=== PATIENT | female | born 1995 | race African-American/Black ===

== ENCOUNTER 2021-07-31 15:09 | Outpatient (CLI) | payer OTHER, SELFPAY ==
--- NOTE | ~2021-07-31 | US_ITS ---
EXAMINATION: US OB <= 14 weeks fetus EXAM DATE: 07/31/2021 15:42 INDICATION: O36.80X0 - with inconclusive viability, n... Dating . 1st trimester. TECHNIQUE: Pelvic obstetrical transabdominal sonogram was performed by a technologist. There are mu ltiple grayscale and Doppler images available for interpretation. There are no earlier studies of th is gestation for comparison. FINDINGS: Uterus measures 11.1 x 6.7 x 6.0 cm. There is intrauterine gestation sac. pole with heart rate confirmed at 161 beats per minute. The 1.6 cm crown-rump length corresponds to estimated gestational age by ultrasound of 8 weeks 0 days, estimated date of confinement 03/12. Yolk sac is id entified. There is no sonographic evidence of subchorionic hemorrhage. Right ovary is identified and morphologically normal. IMPRESSION: Live intrauterine gestation, age by ultrasound 8 weeks 0 days. Reviewed, dictated and finalized at location A. [employer]
== END 2021-07-31 15:10 | disposition home or self-care (01) ==
LOC: ANHIMG 15:14
PROVIDERS: Visit Provider Student in an Organized Health Care Education/Training Program
DX: Z34.91 Encounter for supervision of normal pregnancy, unspecified, first trimester (principal); Z3A.01 Less than 8 weeks gestation of pregnancy
CPT/HCPCS: 76801

== ENCOUNTER 2022-02-15 09:37 | Observation (INO) | payer OTHER, SELFPAY ==
[2022-02-15] VITALS (8 sets, daily range): BP systolic 90–117; BP diastolic 50–77; PULSE 78–86; TEMP 36.3; BMI 27.4
--- NOTE | ~2022-02-15 | US_ITS ---
EXAMINATION: US OB follow up DATE: 02/15/2022 12:19 INDICATION: Assess growth, amniotic fluid index and check placenta and third trimester pregnanc y following a fall earlier this morning. TECHNIQUE: Real-time ultrasound of the pelvis was performed. The interpreting radiologist was not pre sent for the study. COMPARISON: None. FINDINGS: There is a single living fetus in vertex presentation. The placenta is anterior. heart rate is 141 beats per minute (bpm). The amniotic fluid index is 12.0 cm, which is normal. (5th%-95%: 7.7-44 .9 cm at 36 weeks estimated gestational age). The following biometric data were obtained: BPD: 9.1 cm -> 36 weeks 5 days Head circumference: 33.3 cm -> 38 weeks 0 days Abdominal circumference: 30.6 cm -> 34 weeks 4 days Femur length: 6.8 cm -> 34 weeks 6 days Mildly discordant head circumference to abdominal circumference ratio: 1.09 (normal range 0.93-1.08). Estimated weight: 2625 g (+/-) 394 g or 5 lbs. 13 oz. (+/-) 14 oz. IMPRESSION: 1. Single living fetus in vertex presentation with heart rate of 141 bpm. 2. Normal amniotic fluid index of 12.0 cm. 3. Estimated weight is 22nd percentile by Hadlock criteria when 03/12/2022 is used as the estima diane date of delivery (KAPIL). Please correlate with clinical information or earlier ultrasounds for mos t accurate KAPIL. Reviewed, dictated and finalized at location A. IMPRESSION: 1. Single living fetus in vertex presentation with heart rate of 141 bpm. 2. Normal amniotic fluid index of 12.0 cm. 3. Estimated weight is 22nd percentile by Hadlock criteria when 03/12/2022 is used as the estimated date of delivery (KAPIL). Please correlate with clinica l information or earlier ultrasounds for most accurate KAPIL.
[2022-02-15 10:12] LABS: Basophils Percent Auto 0.3 % (0.2-1.2); Eosinophils Percent Auto 0.4 % (0-4.4); Hematocrit 33.7 % (37.0-47.0); Hemoglobin 10.5 g/dL (12.0-15.0); Immature Granulocyte Absolute 0.09 K/mm3 (0.00-0.031); Lymphocytes Percent Auto 20.6 % (18.3-44.2); Mean Corpuscular HGB Conc 31.2 g/dl (32-36); Mean Corpuscular Hemoglobin 26.1 pg (26-34); Mean Corpuscular Volume 83.8 fl (80-100); Mean Platelet Volume 9.9 fl (7.4-10.4); Monocytes Absolute Auto 0.5 K/mm3 (0.1-0.6); Monocytes Percent Auto 5.4 % (2.6-8.5); Neutrophils Absolute Auto 6.7 K/mm3 (1.3-6.7); Neutrophils Percent Auto 72.3 % (45.5-73.1); Platelet Count Result 219 k/mm3 (150-375); Red Blood Count 4.02 M/mm3 (4.2-5.4); Red Cell Distribution Width 13.7 % (11.5-14.5); White Blood Count 9.2 K/mm3 (4.5-10.0)
--- NOTE | 2022-02-15 10:20 | OBADM ---
This patient, Garret Valiente, admitted to the OB room 116 for observation. Patient/family oriented to hospital policies and general routines including ID bracelet, bed and alarms, visiting hours, pain management, procedures, bathroom and other care routines, personal items, smoking policy, room service/diet, and visiting hours. Patient/Family are encouraged to report perceived risks to care and to ask questions if they do not understand what they are told or what they should do.
[2022-02-15 10:29] LABS: Fibrinogen 360 mg/dl (215-510); INR 1.1; Prothrombin Time 14.1 Seconds (11.1-14.7)
[2022-02-15 10:30] LABS: Partial Thromboplastin Time 27.4 SECONDS (22.3-36.8)
--- NOTE | 2022-02-15 12:03 | PM.IMHP ---
H&P: HPI History of Present Illness Date/Time: 02/15/22 12:03 Chief Complaint: status post fall Narrative: she fell down six stairs on her bottom this morning. No spotting. No bleeding. No leaking of fluid. She started having a pain on her right near hip area. Baby has been moving well. No contraction type pain. Review of Systems Review of Systems: All systems reviewed & are unremarkable except as noted in HPI and below Constitutional: Constitutional: Reports no additional constitutional complaints and Denies headache(s) Eyes: Eyes: Denies spots in vision ENT: Reports system reviewed and no additional complaints, except as documented and Denies headache(s) Cardiovascular: Cardiovascular: Denies chest pain and Denies dyspnea Respiratory: Respiratory: Denies dyspnea Gastrointestinal: Gastrointestinal: Reports no additional gastrointestinal complaints Genitourinary: Genitourinary: Reports amenorrhea Musculoskeletal: Musculoskeletal: Reports no additional musculoskeletal complaints Integumentary/Breasts: Skin/Breast: Denies breast mass and Denies rash Neurologic: Denies headache(s) Psychiatric: Psychiatric: Reports no additional psychiatric complaints [facility] Past Medical History Medical History Vaginal delivery Family History Family History Grandparent Family history of malignant neoplasm of breast in first degree relative Mother Lupus Social History Social History Smoking status: Never smoker Second hand tobacco smoke exposure: No Alcohol intake: former Substance use: former Substance use type: marijuana Other substance usage details: Used Marijuana in the past- denies during Spiritual care concerns: No Meds Home Medications and Allergies Home Medications Medication Instructions Recorded Confirmed Type docosahexaenoic acid 200 mg 200 mg PO DAILY 07/23/21 02/16/22 History capsule ( DHA) ferrous sulfate 325 mg (65 mg 325 mg PO DAILY 02/15/22 02/15/22 History iron) tablet Allergies Allergy/AdvReac Type Severity Reaction Status Date / Time No Known Allergies Allergy Verified 02/10/22 12:33 Vital Signs Vital Signs - 24 hr 02/15/22 10:18 02/15/22 10:21 02/15/22 10:31 Temperature 97.3 F L Pulse Rate 83 85 Blood Pressure 115/62 90/51 L Oxygen Delivery Room Air 02/15/22 10:46 02/15/22 11:01 02/15/22 11:16 Temperature Pulse Rate 78 83 Blood Pressure 117/71 114/64 115/77 Oxygen Delivery 02/15/22 11:31 02/15/22 10:32 Temperature Pulse Rate 84 85 Blood Pressure 99/50 L 90/51 L Oxygen Delivery Exam Const: General: no acute distress Eyes: General: appearance normal, both eyes and all related structures Neck: Neck: normal visual inspection Resp: Effort & Inspection: normal respiratory effort GI: Inspection: normal to inspection and other (gravid no bruising no guarding , no fundal tenderness) Other: Gravid no fundal tenderness no right upper quadrant pain : External Female Exam: normal external appearance Other: cervix closed thick Skin: General skin exam: no rashes or lesions noted Neuro: Cognition (Neuro): normal cognition Extrem: General: normal to inspection Psych: Mental Status: mental status grossly normal H&P: Results Labs Labs: Short CBC 02/15/22 Range/Units 09:54 WBC 9.2 (4.5-10.0) K/mm3 Hgb 10.5 L (12.0-15.0) g/dL Hct 33.7 L (37.0-47.0) % Plt Count 219 (150-375) k/mm3 Assessment and Plan Assessment and plan (1) Status post fall: Code(s): Z91.81 - History of falling Status: Acute Assessment and Plan: She was admitted for observation. [place] showed occasional irritability. Cervix closed. Abruption labs ordered. Ultrasound ordered. heart tracing no
== END 2022-02-15 13:29 | disposition home or self-care (01) ==
PROVIDERS: Admitting Provider Obstetrics & Gynecology; Visit Provider Obstetrics & Gynecology
DX: Z04.3 Encounter for examination and observation following other accident (principal); O99.891 Other specified diseases and conditions complicating pregnancy; M25.551 Pain in right hip; W10.9XXA Fall (on) (from) unspecified stairs and steps, initial encounter; Z3A.36 36 weeks gestation of pregnancy
CPT/HCPCS: 36415; 76816; 85025; 85384; 85460; 85610; 85730; G0378; G0379

== ENCOUNTER 2022-03-02 21:15 | Observation (INO) | payer OTHER, SELFPAY ==
[2022-03-02 23:24] VITALS: TEMP 36.6
--- NOTE | 2022-03-02 23:32 | PC.NURSE ---
Called Dr. Billings on pt status, contractions, and unchanged SVE. Orders received to D/C pt with instructions to keep induction and when to return to unit.
[2022-03-03 00:01] VITALS: BMI 28.1
--- NOTE | 2022-03-03 00:36 | OBADM ---
This patient, Garret Valiente, admitted to the OB room Labor/Delivery/Recovery 107 for observation. Patient/family oriented to hospital policies and general routines including ID bracelet, bed and alarms, visiting hours, pain management, procedures, bathroom and other care routines, personal items, smoking policy, room service/diet, and visiting hours. Patient/Family are encouraged to report perceived risks to care and to ask questions if they do not understand what they are told or what they should do.
--- NOTE | 2022-03-31 09:55 | PM.OBTRLD ---
OB - Triage/Final Diagnosis Visit Information Comments/Additional reasons for admission: I have assessed the risk for this patient, Garret Valiente, and determined that she would benefit from observation care. Final Diagnosis (1) False labor: Code(s): O47.9 - False labor, unspecified Status: Acute
== END 2022-03-03 00:07 | disposition home or self-care (01) ==
PROVIDERS: Admitting Provider Obstetrics & Gynecology; Visit Provider Obstetrics & Gynecology
DX: O47.1 False labor at or after 37 completed weeks of gestation (principal); Z3A.38 38 weeks gestation of pregnancy
CPT/HCPCS: G0378; G0379

== ENCOUNTER 2022-03-05 16:47 | Inpatient (IN) | payer OTHER, SELFPAY ==
[2022-03-05] VITALS (8 sets, daily range): BP systolic 105–122; BP diastolic 52–75; PULSE 83–95; TEMP 36.6; BMI 28.0
[2022-03-05 17:49] LABS: Basophils Percent Auto 0.2 % (0.2-1.2); Eosinophils Percent Auto 0.5 % (0-4.4); Hematocrit 34.5 % (37.0-47.0); Immature Granulocyte Absolute 0.08 K/mm3 (0.00-0.031); Immature Granulocyte Percent A 0.9 % (0-0.5); Lymphocytes Absolute Auto 1.82 K/mm3 (0.9-3.2); Lymphocytes Percent Auto 21.1 % (18.3-44.2); Mean Corpuscular HGB Conc 31.9 g/dl (32-36); Mean Corpuscular Hemoglobin 26.4 pg (26-34); Mean Corpuscular Volume 82.9 fl (80-100); Mean Platelet Volume 10.4 fl (7.4-10.4); Monocytes Absolute Auto 0.5 K/mm3 (0.1-0.6); Monocytes Percent Auto 5.8 % (2.6-8.5); Neutrophils Absolute Auto 6.2 K/mm3 (1.3-6.7); Neutrophils Percent Auto 71.5 % (45.5-73.1); Platelet Count Result 226 k/mm3 (150-375); Red Blood Count 4.16 M/mm3 (4.2-5.4); Red Cell Distribution Width 14.3 % (11.5-14.5); White Blood Count 8.6 K/mm3 (4.5-10.0)
[2022-03-05] MEDS: DINOPROSTONE 10 MG VAG INSERT VAGINAL (17:50)
--- NOTE | 2022-03-05 17:52 | LDADM ---
This patient, Garret Valiente, was admitted to Labor/Delivery/Recovery 108 on 03/05/22 at 16:47. Plans for labor, pain management and were discussed with patient. Patient/family oriented to hospital policies and general routines including ID bracelet, bed and alarms, visiting hours, pain management, procedures, bathroom and other care routines, personal items, smoking policy, room service/diet and guest tray routines, security routines, and visiting hours. Patient/Family are encouraged to report perceived risks to care and to ask questions if they do not understand what they are told or what they should do. See OBIX for further documentation.
--- NOTE | 2022-03-05 17:58 | WPDANESEPP ---
Anes - Eval Pre Procedure Procedure: Labor epidural Date/Time: 03/05/22 17:58 Surgeon: haylie Preop Diagnosis: abd pain with contractions Pre Op Diagnosis: iol Patient Data Age: 26 Gender: F Height: Weight: Last Vital Signs Pulse 87 03/05/22 17:50 BP 122/75 03/05/22 17:50 Allergies Allergy/AdvReac Type Severity Reaction Status Date / Time No Known Allergies Allergy Verified 03/03/22 01:06 Home Medications Medication Instructions Recorded Confirmed Type docosahexaenoic acid 200 mg 200 mg PO DAILY 07/23/21 03/03/22 History capsule ( DHA) ferrous sulfate 325 mg (65 mg 325 mg PO DAILY 02/15/22 02/15/22 History iron) tablet Laboratory Tests 03/05/22 03/05/22 17:42 17:42 WBC 8.6 K/mm3 K/mm3 (4.5-10.0) RBC 4.16 M/mm3 L M/mm3 (4.2-5.4) Hgb 11.0 g/dL L g/dL (12.0-15.0) Hct 34.5 % L % (37.0-47.0) MCV 82.9 fl fl (80-100) MCH 26.4 pg pg (26-34) MCHC 31.9 g/dl L g/dl (32-36) RDW 14.3 % % (11.5-14.5) Plt Count 226 k/mm3 k/mm3 (150-375) MPV 10.4 fl fl (7.4-10.4) Immature Gran % (Auto) 0.9 % H % (0-0.5) Neut % (Auto) 71.5 % % (45.5-73.1) Lymph % (Auto) 21.1 % % (18.3-44.2) [place] % (Auto) 5.8 % % (2.6-8.5) Eos % (Auto) 0.5 % % (0-4.4) Baso % (Auto) 0.2 % % (0.2-1.2) Lymph # (Auto) 1.82 K/mm3 K/mm3 (0.9-3.2) [place] # (Auto) 0.5 K/mm3 K/mm3 (0.1-0.6) Eos # (Auto) 0.0 K/mm3 K/mm3 (0-0.3) Baso # (Auto) 0.0 K/mm3 K/mm3 (0.0-0.1) Abs Immat Gran (auto) 0.08 K/mm3 H K/mm3 (0.00-0.031) Absolute Neuts (auto) 6.2 K/mm3 K/mm3 (1.3-6.7) Absolute Nucleated RBC 0.0 K/mm3 K/mm3 (0.0-0.012) Nucleated RBC % 0.0 % % (0.0-0.2) RPR Pending Patient hx anesthesia problems: none Family hx anesthesia problems: none Results Review: All pre-operative results and documents have been reviewed as part of the pre-operative evaluation. [facility] Past Medical History Medical History (Updated 03/05/22 @ 18:01 by Babar Tolbert CRNA) Marijuana use during Obesity and not yet delivered Vaginal delivery Family History Family History Grandparent Family history of malignant neoplasm of breast in first degree relative Mother Lupus Social History Social History Smoking status: Never smoker Second hand tobacco smoke exposure: No Alcohol intake: former Substance use: former Substance use type: marijuana Other substance usage details: Used Marijuana in the past- denies during Spiritual care concerns: No Exam Day of Procedure 03/05/22 17:58 Patient weight: obese Heart: regular rate and rhythm Lungs: clear to auscultation Airway: Mallampati scale class II
[2022-03-05] MEDS: LACTATED RINGERS 1,000 ML 125 ML IV CONT (20:39)
[2022-03-05] MEDS: AMPICILLIN 2 GM/NS 100 ML 2 GM/100 ML BAG IVPB (20:39)
[2022-03-06] VITALS (121 sets, daily range): BP systolic 91–140; BP diastolic 49–104; PULSE 75–114; RESP 16–18; TEMP 36.1–37.1; O2SAT 95–100
[2022-03-06] MEDS: AMPICILLIN 1 GM/NS 50 ML 1 GM/50 ML BAG IVPB ×3 (00:35→09:02)
[2022-03-06] MEDS: FAMOTIDINE 20 MG TABLET PO (02:00)
[2022-03-06] MEDS: fentaNYL CITRATE INJ (*CRX) 100 MCG/2 ML VIAL 50 MCG IV PUSH (02:56)
[2022-03-06] MEDS: LACTATED RINGERS 1,000 ML 125 ML IV CONT ×2 (05:46→07:01)
[2022-03-06 07:36] LABS: Rapid Plasma Reagin Non-Reactive (NonReactive)
--- NOTE | 2022-03-06 08:35 | PM.IMHP ---
H&P: HPI History of Present Illness Date/Time: 03/06/22 08:35 Chief Complaint: Elective induction of labor Narrative: Patient is a 26-year-old LMP 05/04/2021 currently 39 weeks 1 day gestation with KAPIL 03/12/2022. Patient is dated by ultrasound on 07/31/2021 at 8 weeks gestation. Patient presented to Labor and delivery on the evening of 03/05/2022 for a scheduled elective induction of labor at term. In general, patient is doing well. Reports occasional contractions. Denies any vaginal bleeding or leakage of fluid. Reports good movement. Review of Systems Review of Systems: All systems reviewed & are unremarkable except as noted in HPI and below Constitutional: Constitutional: Reports as per HPI and Reports no additional constitutional complaints Eyes: Eyes: Reports as per HPI and Reports no additional eye complaints ENT: Reports system reviewed and no additional complaints, except as documented and Reports as per HPI Cardiovascular: Cardiovascular: Reports as per HPI and Reports no additional cardiovascular complaints Respiratory: Respiratory: Reports as per HPI and Reports no additional respiratory complaints Gastrointestinal: Gastrointestinal: Reports as per HPI and Reports no additional gastrointestinal complaints Genitourinary: Genitourinary: Reports no additional female genitourinary complaints and Reports as per HPI Musculoskeletal: Musculoskeletal: Reports no additional musculoskeletal complaints and Reports as per HPI Integumentary/Breasts: Skin/Breast: Reports system reviewed and no additional complaints, except as docu and Reports as per HPI Neurologic: Reports system reviewed and no additional complaints, except as documented and Reports as per HPI Psychiatric: Psychiatric: Reports no additional psychiatric complaints and Reports as per HPI Endocrine: Endocrine: Reports no additional endocrine complaints and Reports as per HPI Hematologic/Lymphatic: Hematologic/Lymphatic: Reports no additional hematologic/lymphatic complaints and Reports as per HPI Allergic/Immunologic: Allergic/Immunologic: Reports no additional allergic/immunologic complaints and Reports as per HPI PMF Past Medical History Medical History Marijuana use during Obesity and not yet delivered Vaginal delivery Family History Family History Grandparent Family history of malignant neoplasm of breast in first degree relative Mother Lupus Social History Social History Smoking status: Never smoker Second hand tobacco smoke exposure: No Alcohol intake: former Substance use: former Substance use type: marijuana Other substance usage details: Used Marijuana in the past- denies during Spiritual care concerns: No Meds Home Medications and Allergies Home Medications Medication Instructions Recorded Confirmed Type docosahexaenoic acid 200 mg 200 mg PO DAILY 07/23/21 03/03/22 History capsule ( DHA) ferrous sulfate 325 mg (65 mg 325 mg PO DAILY 02/15/22 02/15/22 History iron) tablet Allergies Allergy/AdvReac Type Severity Reaction Status Date / Time No Known Allergies Allergy Verified 03/03/22 01:06 Vital Signs Vital Signs - 24 hr 03/05/22 17:15 03/05/22 17:44 03/05/22 18:00 Temperature Pulse Rate 95 87 83 Respiratory Rate Blood Pressure 122/70 122/75 113/63 Pulse Oximetry Oxygen Delivery 03/05/22 18:30 03/05/22 19:00 03/05/22 23:11 Temperature Pulse Rate 88 88 85 Respiratory Rate Blood Pressure 114/61 105/52 L 113/58 L Pulse Oximetry Oxygen Delivery 03/06/22 03:21 03/06/22 05:45 03/06/22 05:46 Temperature 36.7 C Pulse Rate 92 91 Respiratory Rate 16 Blood Pressure 115/49 L 127/72 122/66 Pulse Oximetry Oxygen Delivery 03/06/22
--- NOTE | 2022-03-06 08:49 | WPDHPUPDATE1 ---
History and Physical Update Update Date/Time: 03/06/22 08:49 History and Physical has been reviewed, including an updated exam of the patient. There are NO changes in the patient's condition. Risks, benefits, and alternatives have been discussed and questions answered. Patient agrees to proceed with procedure.
[2022-03-06] MEDS: OXYTOCIN 30 UNITS/NS 500 ML 30 UNITS/500 ML BAG 999 UNITS IV CONT (10:20)
--- NOTE | 2022-03-06 10:47 | PM.OBPRVD ---
OB - Delivery Note Procedure Delivery date: 03/06/22 Procedure: Patient is a 26-year-old now who presented to labor and delivery on the evening of 03/05/2022 at 39 weeks gestation for scheduled elective induction of labor. Patient was admitted to labor and delivery. Induction of labor was started with Cervidil. Patient had positive GBS screen during and antibiotics were started for GBS prophylaxis. Cervidil remained in place for 12 hours. Upon removal, patient was noted to be 2-3 cm dilated and yair frequently on her own. She continued to progress on her own. Artificial rupture membranes was performed a 8:28 a.m. Clear amniotic fluid was noted. Patient continued to make progressive cervical change. She was noted to be fully dilated at 10:05 a.m. Patient was encouraged to push and found to be pushing well. She was prepped and draped for delivery. At 10:17 a.m., patient delivered head atraumatically and without difficulty in JOSIAH presentation. Occiput restituted to maternal left side. With subsequent push, the infant's neck, shoulders, and rest of body delivered without difficulty. was crying spontaneously. Nose and mouth were suctioned with bulb suction and was placed on maternal abdomen where care was assumed by awaiting nursing staff. Terminal meconium was noted and infant also voided spontaneously. Delayed cord clamping was performed for approximately 60 seconds. Cord was clamped and cut. A segment of cord was collected for cord gases. Cord blood was collected. The placenta was delivered spontaneous and intact. Uterine fundus was noted to be firm with massage. On inspection, no lacerations were noted. Estimated blood loss for entire delivery was 200 cc. Infant was live born female infant, Apgars 9 and 9, weighing 6 lbs. 11 oz. Both mother and baby doing well at end of delivery. Events: Elective Induction of Labor and Positive Group B Strep (GBS) Induction method: Per Cervidil Protocol Delivery augmentation: Rupture of Membranes Delivery monitor: External FHT and External Uterine Route of delivery: Laceration Description: None Specimen: Yes (cord blood and cord gases) Quantitative Blood Loss (ml): 200 Anesthesia type: Epidural Disposition: Floor Complications: No immediate complications Baby Date of : 03/06/22 Time of : 10:17 Weeks of gestation at delivery: 39 (39.1) gender: Female Weight (pounds): 6 Weight (ounces): 11 presentation: vertex position: Left Occiput Anterior Placenta delivery description: Spontaneous Cord Vessel Description: 3 Vessels and Delayed Cord Clamping score one minute: 9 score five minutes: 9 AMG Delivery Billing Delivery Delivery: Delivery Charge
[2022-03-06] MEDS: OXYTOCIN 30 UNITS/NS 500 ML 30 UNITS/500 ML BAG 125 UNITS IV CONT (10:52)
[2022-03-06] MEDS: WITCH HAZEL 40 PADS 1 PAD TOPICAL (12:29)
--- NOTE | 2022-03-06 12:48 | PC.NURSE ---
Patient transferred to post room #286 via wheel chair. Support person present. Oriented to unit, room, information board, rooming in, admission packet and security measures. Patient verbalizes understanding.
[2022-03-07 00:30] VITALS: BP 108/66; PULSE 86; RESP 16; TEMP 36.9; O2SAT 97
[2022-03-07 04:45] VITALS: BP 110/65; PULSE 80; RESP 16; TEMP 36.5; O2SAT 96
[2022-03-07] MEDS: TETANUS,DIPHTHERIA,AC PERTUSSIS ADULT (0.5 ML) BOOSTRIX IM (04:45)
[2022-03-07 06:08] LABS: Hematocrit 32.9 % (37.0-47.0); Hemoglobin 10.6 g/dL (12.0-15.0)
[2022-03-07 07:15] VITALS: BP 114/67; PULSE 76; RESP 16; TEMP 36.5; O2SAT 98
--- NOTE | 2022-03-07 07:36 | WPDANLDPN2 ---
Anes-Prog Note L&D Date/Time: 03/07/22 07:36 Comfortable throughout: labor and delivery Neuraxial method: epidural Epidural/Spinal procedure site: clean & non-tender Neuro status: Neuro function grossly intact. Vital Signs: Last Vital Signs Temp 36.5 C 03/07/22 04:45 Pulse 80 03/07/22 04:45 Resp 16 03/07/22 04:45 BP 110/65 03/07/22 04:45 Pulse Ox 96 03/07/22 04:45 O2 Del Method Room Air 03/06/22 21:05 Pain score (VAS): 1 I/O: Intake & Output 03/06/22 03/06/22 03/07/22 15:59 23:59 07:59 Intake Total 1550 480 Output Total 325 Balance 1225 480 Patient feedback: Patient satisfied with anesthetic care.
[2022-03-07 08:00] VITALS: PULSE 76; RESP 16; O2SAT 98
[2022-03-07] MEDS: MULTIVIT/MIN/PREN/FOL AC/IRON TABLET 1 TAB PO (09:15)
--- NOTE | 2022-03-07 09:43 | PM.OBPNVD ---
OB - PN: Subj Subjective Date/time seen: 03/07/22 09:43 Patient doing well. Reports minimal to moderate lochia. Denies significant abdominal pain and cramping. Well controlled with medication. Ambulating without difficulty. Voiding well. OB - PN: Obj Data Labs CBC & Chem 7: 03/07/22 05:01 Labs: Laboratory Results - last 24 hr 03/07/22 05:01 Hgb 10.6 L Hct 32.9 L OB - PN A/P Assessment and Plan (1) Normal spontaneous vaginal delivery: Code(s): O80 - Encounter for full-term uncomplicated delivery Status: Acute Assessment and Plan: PPD#1 doing well continue routine care pt requesting dc home today if infant cleared emergency precautions reviewed f/u in 4-6 weeks for visit Time Spent With Patient Time: Total time spent is greater than 50% in coordination of care (as documented) at patient's floor/unit and/or counseling patient: Review of Systems Review of Systems: All systems reviewed & are unremarkable except as noted in HPI and below Constitutional: Constitutional: Reports as per HPI and Reports no additional constitutional complaints Gastrointestinal: Gastrointestinal: Reports as per HPI and Reports no additional gastrointestinal complaints Genitourinary: Genitourinary: Reports no additional female genitourinary complaints and Reports as per HPI Exam Const: General: cooperative, healthy appearing, comfortable and no acute distress GI: Inspection: non-distended GI Palp: Yes Soft to palpation and No Tenderness to palpation present (GI) Other: fundus firm below umbilicus Extrem: Right lower extremity: no edema Left lower extremity: no edema Other: no calf tenderness
--- NOTE | 2022-03-07 09:52 | PC.NURSE ---
Patient viewed the discharge video Mother & Baby Care, The First Two Weeks . Patient was given the opportunity and encouraged to ask questions. Patient verbalized understanding of information shared and has been given the mother/baby guide for home reference.
--- NOTE | 2022-03-07 12:21 | P.DS_ITS ---
DS: Admitting Diagnosis Discharge Date 03/07/22 Admitting Diagnosis IUP at 39w Elective IOL OB - DS: Summary OB Procedures : None OB Procedures Intrapartum: Spontaneous Vag Delivery OB Procedures: : None Time Spent with Patient Time attestation: Total time spent providing and/or coordinating discharge services: DS: Data Data Completed and Pending Labs on day of discharge: Labs from last 24 hours 03/07/22 05:01 Hgb 10.6 L Hct 32.9 L Discharge Plan Discharge Attending physician on discharge: Tayla Cancino Discharging Clinician: Tayla Cancino Anticipated Discharge Date/Time: 03/07/22 12:24 Patient Disposition: Home, Self-Care Activity: as tolerated and pelvic rest Diet: regular Discharge Instructions: Call office ([phone]) to schedule a visit in 4-6 weeks. You may take Ibuprofen 600mg every 6 hours as needed for pain. Pain medication may make you constipated. It may be helpful to take an [id number] stool softener, such as Colace and/or Senokot, along with the pain medication to help lessen constipation. Call office or go to ED for pain not controlled with medication, headache, chest pain, shortness of breath, fever, chills, persistent nausea or vomiting, severe abdominal pain, heavy vaginal bleeding >2 pads/hour, foul vaginal discharge or odor, or problems with your breasts. Patient Instructions: Antibiotic Form Stand Alone Forms: General Discharge Information Follow-up/Referrals: Tayla Cancino MD [Physician] - Discharge Medications: Continued DHA 200 mg capsule 200 mg PO DAILY Discontinued ferrous sulfate 325 mg (65 mg iron) tablet 325 mg PO DAILY Rx Instructions: TAKE 1 TABLET BY MOUTH EVERY DAY Date of admission: 03/05/22 16:47 Primary Care Provider: PHYSICIAN,[employer] Admitting Provider: Tayla Cancino Attending physician on admission: Tayla Cancino Condition: Stable
[2022-03-08 10:18] VITALS: BP 118/72; PULSE 92; RESP 18; TEMP 37.1; O2SAT 97
== END 2022-03-07 13:40 | disposition home or self-care (01) | DRG 560 ==
LOC: ANHLDR 03-06 09:54 → ANHOB2 03-06 13:03
PROVIDERS: Admitting Provider Student in an Organized Health Care Education/Training Program; Visit Provider Student in an Organized Health Care Education/Training Program
DX: O99.824 Streptococcus B carrier state complicating childbirth (principal); Z3A.39 39 weeks gestation of pregnancy; Z37.0 Single live birth
CPT/HCPCS: 36415; 85014; 85018; 85025; 86592; 86850; 86900; 86901; 90715; A9270; J0290; J2590; J2795; J3010; J7120

== ENCOUNTER 2022-04-29 09:25 | Emergency (ER) | payer OTHER, SELFPAY ==
[2022-04-29] VITALS (10 sets, daily range): BP systolic 101–120; BP diastolic 71–80; PULSE 121; RESP 18; TEMP 36.8; O2SAT 90–100
--- NOTE | ~2022-04-29 | US_ITS ---
EXAMINATION: US pelvic complete w TV DATE: 04/29/2022 12:47 INDICATION: Cystic mass in left adnexa. TECHNIQUE: Multiple transabdominal and transvaginal sonographic images of the pelvis were obtained. COMPARISON: CT abdomen and pelvis 04/29/2022 FINDINGS: TRANSABDOMINAL ULTRASOUND: The uterus measures 9.2 x 5.5 x 4.4 cm. There is physiologic free fluid in the pelvis. TRANSVAGINAL ULTRASOUND: The endometrial complex measures 9 mm in thickness. The right ovary measures 4.1 x 2.3 x 2.2 cm. The left ovary measures 4.5 x 2.4 x 2.7 cm. There is normal vascular flow in the ovaries. IMPRESSION: 1. Normal pelvis. Reviewed, dictated and finalized at location A. IMPRESSION: 1. Normal pelvis.
--- NOTE | ~2022-04-29 | CT_ITS ---
EXAMINATION: CT abdomen pelvis w con INDICATION: Left-sided pelvic and abdominal pain TECHNIQUE: Computed tomographic images of the abdomen and pelvis were obtained after the administrati on of 100 cc of Omnipaque 350 intravenous contrast. The dose-length product (DLP) was 271.07 mGy-cm. Automated exposure control and iterative reconstruction technique were employed. COMPARISON: None available FINDINGS: The lung bases are clear. The heart size is normal. The liver, spleen, pancreas, gallbladde r, and adrenal glands are normal. The kidneys are unremarkable. No pathologically enlarged abdominal or pelvic lymph nodes are identified. There is no free intraperitoneal gas or evidence of bowel obstr uction. There is a 3.6 x 3.4 cm fluid collection in the left pelvis. A small amount of fluid is prese nt in the endometrial canal. The appendix is normal. IMPRESSION: 1. 3.6 cm fluid collection of the left pelvis which could relate to the left ovary however, further e valuation with pelvic ultrasound is recommended. Reviewed, dictated and finalized at location A. IMPRESSION: 1. 3.6 cm fluid collection of the left pelvis which could relate to the left ov ezequiel however, further evaluation with pelvic ultrasound is recommended.
--- NOTE | 2022-04-29 09:41 | ED.ABDPAIN ---
HPI - Abdominal Pain General Chief Complaint: Abdominal Pain <OG Renae Last Filed: 04/29/22 17:45> Stated Complaint: 7 weeks PP, pelvic pain <OG Renae Last Filed: 04/29/22 17:45> Time Seen by Provider: 04/29/22 09:34 <OG Renae Last Filed: 04/29/22 17:45> Source: patient <OG Renae Last Filed: 04/29/22 17:45> Mode of arrival: ambulatory <OG Renae Last Filed: 04/29/22 17:45> Limitations: no limitations <OG Renae Last Filed: 04/29/22 17:45> History of Present Illness HPI narrative: Patient is a 27-year-old female who presents to the ED with complaints of lower abdominal pain/pelvic pain. Patient reports she is 7 weeks . She had her visit with her POLE [employer]ER, Dr. Cancino, 2 weeks ago at which point everything was normal. Over the last 3 days, she has developed pain in her lower abdomen/pelvic region. She states it hurts to sit on her bottom. She had issues with hemorrhoids throughout her , but denies any known issues currently. Denies nausea, vomiting, fevers, vaginal bleeding, vaginal discharge, rectal bleeding, diarrhea, constipation, dysuria, hematuria. Patient has not had her first cycle since her childbirth. <OG Renae Last Filed: 04/29/22 17:45> Related Data Allergies/Adverse Reactions: Allergies Allergy/AdvReac Type Severity Reaction Status Date / Time No Known Allergies Allergy Verified 04/29/22 09:28 <OG Renae Last Filed: 04/29/22 17:45> Review of Systems Review of Systems: CONSTITUTIONAL: Denies fever, chills, or sweats. GASTROINTESTINAL: Reports lower abdominal / pelvic pain. Denies constipation, rectal bleeding, nausea, vomiting, or diarrhea. GENITOURINARY: Denies vaginal bleeding, vaginal discharge, dysuria or hematuria. <Goldie Ocasio PA-C - Last Filed: 04/29/22 17:45> All systems reviewed & are unremarkable except as noted in HPI and below <Goldie Ocasio PA-C - Last Filed: 04/29/22 17:45> PMFSH Past Medical History Medical History: Medical History (Updated 04/30/22 @ 00:00 by Gabby Sanchez) Marijuana use during Obesity and not yet delivered Vaginal delivery <Goldie Ocasio PA-C - Last Filed: 04/29/22 17:45> Surgical History Surgical History: Surgical History No pertinent past surgical history <Goldie Ocasio PA-C - Last Filed: 04/29/22 17:45> Family History Family History: Family History Grandparent Family history of malignant neoplasm of breast in first degree relative Mother Lupus <Goldie Ocasio PA-C - Last Filed: 04/29/22 17:45> Social History Social History: Social History Smoking status: Never smoker Second hand tobacco smoke exposure: No Alcohol intake: former Substance use: former Substance use type: marijuana Other substance usage details: Used Marijuana in the past- denies during Spiritual care concerns: No <Goldie Ocasio PA-C - Last Filed: 04/29/22 17:45> Exam Narrative: GENERAL: Well appearing, well-nourished, non-toxic, in no acute distress. HEAD: Normocephalic, atraumatic. NECK: Supple. No adenopathy, no masses. RESPIRATORY: Airway patent, respirations nonlabored. Clear to auscultation bilaterally, no rales, rhonchi, wheezing. CARDIOVASCULAR: Regular rate and rhythm without murmurs, rubs, or gallops. Radial pulses 2+ and equal bilaterally. ABDOMINAL: Soft, mild tenderness to palpation throughout left upper quadrant, left lower quadrant, suprapubic region. Nondistended, no hepatosplenomegaly. Normoactive BS. RECTAL: Normal external appearance. Small external hemor
[2022-04-29 10:06] LABS: Basophils Percent Auto 0.2 % (0.2-1.2); Eosinophils Percent Auto 0.2 % (0-4.4); Hemoglobin 13.4 g/dL (12.0-15.0); Immature Granulocyte Absolute 0.03 K/mm3 (0.00-0.031); Immature Granulocyte Percent A 0.4 % (0-0.5); Lymphocytes Absolute Auto 1.66 K/mm3 (0.9-3.2); Mean Corpuscular HGB Conc 31.9 g/dl (32-36); Mean Corpuscular Hemoglobin 26.6 pg (26-34); Mean Corpuscular Volume 83.5 fl (80-100); Mean Platelet Volume 9.5 fl (7.4-10.4); Monocytes Absolute Auto 0.5 K/mm3 (0.1-0.6); Monocytes Percent Auto 5.5 % (2.6-8.5); Neutrophils Absolute Auto 6.1 K/mm3 (1.3-6.7); Neutrophils Percent Auto 73.7 % (45.5-73.1); Platelet Count Result 229 k/mm3 (150-375); Red Blood Count 5.03 M/mm3 (4.2-5.4); Red Cell Distribution Width 14.2 % (11.5-14.5); White Blood Count 8.3 K/mm3 (4.5-10.0)
[2022-04-29 10:15] LABS: Alanine Aminotransferase 22 U/L (6-35); Albumin Level 4.8 g/dL (3.5-5.1); Alkaline Phosphatase 75 U/L (38-126); Anion Gap 12 mmol/L (8-16); Aspartate Amino Transferase 25 U/L (14-36); Bilirubin,Total 0.5 mg/dL (0.2-1.3); Blood Urea Nitrogen 10 mg/dL (7-17); Calcium 9.3 mg/dL (8.4-10.2); Carbon Dioxide 27 mmol/L (22-30); Chloride 102 mmol/L (98-107); Estimated CRCL calculation 87 ml/min; Estimated Glomerular Filt Rate > 60; Glucose 97 mg/dL (65-110); Potassium 3.9 mmol/L (3.4-5.0); Sodium 141 mmol/L (137-145)
[2022-04-29 10:26] LABS: Add Urine Microscopic? YES; Appearance Urine Cloudy (Clear); Bilirubin Urine Negative (Negative); Blood Urine Negative (Negative); Color Urine Amber (Yellow); Glucose Urine UA Negative (Negative); Ketones Urine Negative (Negative); Leukocyte Esterase Ur Negative LEU/UL (Negative); Mucus Urine Heavy /lpf; Nitrate Urine Negative (Negative); Protein Urine Negative (Negative); RBC Urine 0-2 /hpf (0-2); Squamous Epithelial Cell Urine Many /hpf (Few); Urobilinogen Urine Negative mg/dL (<2.0); WBC Urine 0-3 /hpf
[2022-04-29] MEDS: SODIUM CHLORIDE 0.9% IV 1,000 ML 999 ML IV CONT (10:33)
[2022-04-29 10:38] LABS: Specific Grav Ur 1.033 (1.001-1.035)
[2022-04-29] MEDS: IBUPROFEN 600 MG TABLET PO (14:39)
== END 2022-04-29 14:45 | disposition home or self-care (01) ==
PROVIDERS: Physician Assistant; Emergency Provider Emergency Medicine
DX: R10.30 Lower abdominal pain, unspecified (principal)
CPT/HCPCS: 36415; 74177; 76830; 76856; 80053; 81001; 81025; 85025; 96361; 96374; 99284; A9270; J0131; J7030; Q9967

== ENCOUNTER 2023-05-20 12:29 | Outpatient (CLI) | payer OTHER, SELFPAY ==
--- NOTE | ~2023-05-20 | US_ITS ---
EXAMINATION: US pelvic complete w TV DATE: 05/20/2023 14:41 INDICATION: N92.6 - Irregular menstruation, unspecified TECHNIQUE: Multiple transabdominal and endovaginal sonographic images of the pelvis were obtained. COMPARISON: 04/29/2022. FINDINGS: Uterus: 9.0 x 3.5 x 4.0 cm. Heterogeneous and indistinct endometrial complex complex measures 1.5 mm. Right Ovary: 4.4 x 2.2 x 2.3 cm. Vascular flow is present. Left Ovary: 4.2 x 2.3 x 2.8 cm. Vascular flow is present. There is trace free fluid in the pelvis. IMPRESSION: Uterine parenchymal findings may represent adenomyosis in the appropriate clinical context. Reviewed, dictated and finalized at location K. IMPRESSION: Uterine parenchymal findings may represent adenomyosis in the appropriate clini claude context.
== END 2023-05-20 12:30 | disposition home or self-care (01) ==
LOC: ANHIMG 12:32
PROVIDERS: Visit Provider Registered Nurse
DX: N92.6 Irregular menstruation, unspecified (principal); N85.8 Other specified noninflammatory disorders of uterus
CPT/HCPCS: 76830; 76856

== ENCOUNTER 2024-05-28 09:45 | Outpatient (CLI) | payer MEDICAID, SELFPAY ==
--- NOTE | ~2024-05-28 | US_ITS ---
Pelvic ultrasound. Clinical History: Excessive and frequent menstruation Technique: Realtime transabdominal and transvaginal scanning of the pelvis was performed. Color flow Doppler and Doppler spectral analysis were performed. Findings: The uterus is anteverted. The endometrial stripe has a thickness of 11 mm. No focal mass i s identified. The right ovary measures 3.4 x 2.9 x 2.2 cm. No significant right ovarian or adnexal mass is seen. The left ovary measures 3.6 x 2.3 x 1.5 cm. No significant left ovarian or adnexal mass is seen. Both ovaries demonstrate small, peripherally oriented follicular cysts. There is no evidence of free fluid in the cul de sac. Impression: Morphologic findings of the ovaries raise the possibility of polycystic ovary syndrome. Correlate cli nically. Reviewed, dictated and finalized at [facility]. RY DELIVERER Impression: Morphologic findings of the ovaries raise the possibility of polycystic ovary s yndrome. Correlate clinically.
== END 2024-05-28 09:46 | disposition home or self-care (01) ==
PROVIDERS: Visit Provider Nurse Practitioner Family
DX: R93.89 Abnormal findings on diagnostic imaging of other specified body structures (principal); N92.0 Excessive and frequent menstruation with regular cycle
CPT/HCPCS: 76830; 76856